=== PATIENT | male | born 1930 | race Caucasian/White ===

== ENCOUNTER → 2019-04-30 | Outpatient (CLI) | payer MEDICARE ==
[~2019-04-30] MED LIST: AMLO5TAB9 PO; DOCU100C33 PO; FINA5TAB2 PO; FLUT16H NASAL; GABA-531 PO; LATA2.5D2 OS; LORA-868 PO; LOSA100T58 PO; NITR0.4T SL; POLY17PO4 PO; PRO AIR INHALER IH; SIMV40TA59 PO; TIMO5DRO7 OS; VIT1CAPS47 PO; XALA2.5OS OS
== END | disposition home or self-care (01) ==
LOC: SHCH 09:18
PROVIDERS: ATTEND Internal Medicine Cardiovascular Disease
DX: I71.4 Abdominal aortic aneurysm, without rupture (principal)
CPT/HCPCS: 93978

== ENCOUNTER 2020-04-14 05:15 | Inpatient (IN) | payer MEDICARE ==
[~2020-04-14] VITALS: Ht 195.6 cm; Wt 80.7 kg
[2020-04-14] MEDS ORDERED: ONDANSETRON HCL 4 MG/2 ML VIAL ONE (05:31)
[2020-04-14] MEDS ORDERED: ORPHENADRINE CITRATE 30 MG/ML ML ONE (05:32)
[2020-04-14 05:48] LABS: BASOPHILS % (AUTO) 0.1 % (0.0-5.0); EOSINOPHILS % (AUTO) 0.1 % (0.0-8.0); HEMATOCRIT 38.8 % (42-54); MEAN CORPUSCULAR HEMOGLOBIN 30.8 pg (27.0-33.0); MEAN CORPUSCULAR VOLUME 93.5 fL (79-99); MONOCYTES % (AUTO) 7.9 % (3.0-13.0); NEUTROPHILS % (AUTO) 82.2 % (40.0-77.0); PLATELET COUNT (AUTO) 208 K/uL (130-400); RED BLOOD CELL COUNT(AUTO) 4.15 MIL/uL (4.50-6.20); RED CELL DISTRIBUTION WIDTH 13.9 % (11.0-15.5); WHITE BLOOD COUNT (AUTO) 11.5 K/uL (4.8-10.8)
[2020-04-14 05:53] LABS: INR 1.14 (0.85-1.15); PARTIAL THROMBOPLASTIN TIME 28.6 SEC (26.3-35.5); PROTHROMBIN TIME 12.2 SEC (9.6-11.6)
[2020-04-14 05:59] LABS: APPEARANCE,URINE Clear (CLEAR); BILIRUBIN,URINE Negative (NEGATIVE); COLOR,URINE Yellow (YELLOW); GLUCOSE, URINE (UA) Negative (NEGATIVE); KETONES,URINE Negative (NEGATIVE); LEUKOCYTE ESTERASE ,URINE Negative (NEGATIVE); NITRATE,URINE Negative (NEGATIVE); OCCULT BLOOD,URINE Negative (NEGATIVE); PROTEIN,URINE Negative (NEGATIVE)
[2020-04-14 06:00] LABS: ALBUMIN 3.1 g/dL (3.5-5.0); BILIRUBIN,TOTAL 0.9 mg/dL (0.2-1.0); CREATININE 1.1 mg/dL (0.5-1.5); POTASSIUM 4.4 mmol/L (3.5-5.1); TOTAL PROTEIN, SERUM 6.9 g/dL (6.0-8.3)
[2020-04-14] MEDS ORDERED: HYDRALAZINE HCL 20 MG/ML VIAL ONE (06:32)
[2020-04-14] MEDS ORDERED: MORPHINE SULFATE 2 MG/ML 1ML SYG ONE (06:32)
[2020-04-14] MEDS ORDERED: ACETAMINOPHEN 325 MG TAB ONE (07:46)
[2020-04-14] MEDS ORDERED: IPRATROPIUM 0.5 MG/2.5 ML INH IH PRN (12:15)
[2020-04-14] MEDS ORDERED: MORPHINE SULFATE 4 MG/1ML SYG IV PRN (12:15)
[2020-04-14] MEDS ORDERED: LIDOCAINE 5% TOPICAL PATCH TP SCH (12:30)
[2020-04-14 14:00] LABS: LACTATE DEHYDROGENASE 408 U/L (81-234)
--- NOTE | 2020-04-14 14:00 | NUR ---
DYSPHAGIA EVAL COMPLETED HIGH RISK OF ASPIRATION WITH THIN LIQUIDS AT THIS TIME. RECOMMEND PUREE SOLIDS, NECTAR THICK LIQUIDS VIA STRAW, PILLS CRUSHED WITH APPLESAUCE TOLERATED. MERCERIZING RANGE FEEDER EDUCATED Pt ON RISKS AND CONSEQUENCES OF ASPIRATION. MERCERIZING RANGE FEEDER COORDINATED WITH NURSE NORWOOD. RECOMMENDATIONS: DYSPHAGIA THERAPY 3-5XWEEK TO INCREASE ORAL MOTOR STRENGTH AND PHARYNGEAL SWALLOW: LTG#1: Pt WILL TOLERATE LEAST RESTRICTIVE DIET TO MEET NUTRITION/HYDRATION WITH NO S/S OF ASPIRATION. LTG#2: SKILLED EDUCATION Pt/FAMILY/STAFF STG#1: Pt WILL PARTICIPATE IN LARYNGEAL ELEVATION/EXCURSION EXERCISES WITH 80% ACCURACY. STG#2: Pt WILL PARTICIPATE IN TONGUE BASE RETRACTION EXERCISES WITH 80% ACCURACY. STG#3: Pt WILL PARTICIPATE IN ORAL MOTOR EXERCISES WITH 80% ACCURACY. STG#4: Pt WILL TOLERATE THERAPEUTIC TRIALS OF THIN LIQUIDS WITH NO OVERT S/S OF ASPIRATION. STG#5: Pt WILL BE ABLE TO PARTICIPATE IN MBSS AFTER 2-4 WEEKS OF THERAPEUTIC INTERVENTION. STG#6: SKILLED EDUCATION Pt/FAMILY/STAFF. MERCERIZING RANGE FEEDER COORDINATED CARE WITH [facility]. Addendum: 04/14/[address] SHAYY CLEMENTS Amended: Links added.
[2020-04-14] MEDS ORDERED: LIDOCAINE 5% TOPICAL PATCH TP ONE (14:52)
[2020-04-14] MEDS ORDERED: ENOXAPARIN SODIUM 30 MG/0.3 ML SQ ONE (14:52)
[2020-04-14] MEDS ORDERED: ACETAMINOPHEN-CODEINE 300/30MG TAB ONE (14:53)
--- NOTE | 2020-04-14 16:00 | NUR ---
DCP CM met with pt discussed dc plans. Pt is independent mostly prior to admission, lives at [facility]. Pt has a rollator walker. Denies any equipments/services. Prefers to go back to [facility] but agreeable to go to [facility] BRE signed. Son able to assist with transportation and needs as necessary. DC plan to SNF once stable. CM to cont to follow up. Addendum: 04/16/20 at 0944 by ADAL PANIAGUA LVN CM Amended: Links added.
[2020-04-14] MEDS: FAMOTIDINE 20MG TAB 20 MG TAB PO SCH (20:59)
[2020-04-14] MEDS: METOPROLOL TARTRATE 25 MG TAB PO SCH (20:59)
[2020-04-14 22:06] VITALS: BP 133/86
[2020-04-14] MEDS: ACETAMINOPHEN-CODEINE 300/30MG TAB PO PRN (23:05)
[2020-04-15] VITALS (8 sets, daily range): BP systolic 130–188; BP diastolic 69–107
[2020-04-15 04:04] LABS: BASOPHILS % (AUTO) 0.3 % (0.0-5.0); EOSINOPHILS % (AUTO) 1.2 % (0.0-8.0); HEMATOCRIT 35.6 % (42-54); LYMPHOCYTES % (AUTO) 16.9 % (21.0-51.0); MEAN CORPUSCULAR HEMOGLOBIN 30.7 pg (27.0-33.0); MEAN CORPUSCULAR HGB CONC 32.6 g/dL (32.0-36.0); MEAN CORPUSCULAR VOLUME 94.2 fL (79-99); MONOCYTES % (AUTO) 9.2 % (3.0-13.0); NEUTROPHILS % (AUTO) 71.9 % (40.0-77.0); PLATELET COUNT (AUTO) 202 K/uL (130-400); RED BLOOD CELL COUNT(AUTO) 3.78 MIL/uL (4.50-6.20); RED CELL DISTRIBUTION WIDTH 14.4 % (11.0-15.5); WHITE BLOOD COUNT (AUTO) 7.8 K/uL (4.8-10.8)
[2020-04-15 04:32] LABS: ALBUMIN 2.8 g/dL (3.5-5.0); BILIRUBIN,DIRECT 0.3 mg/dL (0.0-0.3); BILIRUBIN,TOTAL 0.7 mg/dL (0.2-1.0); CREATININE 1.1 mg/dL (0.5-1.5); TOTAL PROTEIN, SERUM 6.1 g/dL (6.0-8.3)
[2020-04-15] MEDS: FAMOTIDINE 20MG TAB 20 MG TAB PO SCH ×2 (08:32→22:18)
[2020-04-15] MEDS: METOPROLOL TARTRATE 25 MG TAB PO SCH ×2 (08:33→22:18)
[2020-04-15] MEDS: ASPIRIN 81MG TAB.CHEW PO SCH (08:33)
[2020-04-15] MEDS: ENOXAPARIN SODIUM 40 MG/0.4 ML SYRINGE SQ SCH (08:34)
[2020-04-15] MEDS ORDERED: CALCITONIN 3.7 ML AEROSOL NS SCH (09:00)
[2020-04-15] MEDS ORDERED: ENOXAPARIN SODIUM 30 MG/0.3 ML SQ SCH (09:00)
--- NOTE | 2020-04-15 10:00 | NUR ---
FOLLOW UP COMPLETED. TUFTING SUPERVISOR COORDINATED WITH NURSE LOPEZ. Pt TOLERATING DIET RECOMMENDATIONS WITH NO S/S OF ASPIRATION AT THIS TIME. CONTINUE WITH PLAN OF CARE TOLERATED. TUFTING SUPERVISOR WILL FOLLOW Pt TO ADDRESS SWALLOWING GOALS. Addendum: 04/15/[address] SHAYY CLEMENTS Amended: Links added.
--- NOTE | 2020-04-15 11:20 | NUR ---
DYSPHAGIA RE-EVAL COMPLETED. S/S OF ASPIRATION AT THIS TIME. RECOMMEND MECHANICAL SOFT/CHOPPED, THIN LIQUIDS, AND PILLS WHOLE WITH LIQUIDS TOLERATED. REGULATORY AFFAIRS ASSOCIATE EDUCATED Pt ON RISKS AND CONSEQUENCES OF ASPIRATION. SON AT BEDSIDE DURING EVALUATION. ALL QUESTIONS ANSWERED AT THIS TIME. REGULATORY AFFAIRS ASSOCIATE COORDINATED WITH NURSE JOHN. Addendum: 04/15/[address] SHAYY CLEMENTS Amended: Links added.
--- NOTE | 2020-04-15 14:48 | NUR ---
TRISTEN LUNDBERG SPOKE TO MR CAMARENA AND HIS SON. AFTER MULTIPLE CONVERSATIONS HE AGREED TO GO [facility]. GOING TO SEND SON SOME INFO REGARDING OTHER INDEPENDENT LIVING AREAS SINCE [facility] [place] WILL ONLY LET HIM BACK IF HE HAS 24 HRS CARE. I SPOKE TO HIM SAID HE CAN NOT AFFORD. INFO SENT TO [facility] LET VENDOR. Addendum: 04/15/20 at 1510 by EVARISTO CROUCH RN CM Amended: Links added.
[2020-04-15] MEDS ORDERED: NON-FORMULARY MEDICATION 1 EACH (Simvastatin (Zocor) 20 MG) PO SCH (21:00)
[2020-04-15] MEDS: GABAPENTIN 300 MG CAPSULE PO SCH (22:18)
[2020-04-15] MEDS: SIMVASTATIN 20 MG TABLET PO SCH (22:18)
[2020-04-16] VITALS (8 sets, daily range): BP systolic 109–174; BP diastolic 48–97
[2020-04-16] MEDS ORDERED: HYDRALAZINE HCL 20 MG/ML VIAL IV PRN (03:45)
[2020-04-16] MEDS ORDERED: HYDRALAZINE HCL 20 MG/ML VIAL ONE (03:47)
[2020-04-16] MEDS: ACETAMINOPHEN-CODEINE 300/30MG TAB PO PRN ×2 (04:44→16:59)
--- NOTE | 2020-04-16 08:30 | NUR ---
FOLLOW UP COMPLETED. NUTRITION TECHNICIAN COORDINATED WITH NURSE LOPEZ. Pt TOLERATING DIET RECOMMENDATIONS WITH NO S/S OF ASPIRATION AT THIS TIME. CONTINUE WITH PLAN OF CARE TOLERATED. Addendum: 04/16/[address] SHAYY CLEMENTS Amended: Links added.
[2020-04-16] MEDS: ASPIRIN 81MG TAB.CHEW PO SCH (09:15)
[2020-04-16] MEDS: LOSARTAN 100 MG TABLET PO SCH (09:15)
[2020-04-16] MEDS: FAMOTIDINE 20MG TAB 20 MG TAB PO SCH ×3 (09:15→21:32)
[2020-04-16] MEDS: GABAPENTIN 300 MG CAPSULE PO SCH ×4 (09:15→21:32)
[2020-04-16] MEDS: METOPROLOL TARTRATE 25 MG TAB PO SCH ×3 (09:16→21:32)
[2020-04-16] MEDS: ENOXAPARIN SODIUM 40 MG/0.4 ML SYRINGE SQ SCH (09:16)
[2020-04-16] MEDS: AMLODIPINE BESYLATE 5 MG TAB PO SCH ×2 (09:16→16:13)
[2020-04-16] MEDS: FINASTERIDE 5 MG TABLET PO SCH (11:55)
[2020-04-16] MEDS: SIMVASTATIN 20 MG TABLET PO SCH ×2 (21:00→21:32)
[2020-04-16] MEDS ORDERED: LATANOPROST 2.5 ML DROPS OS SCH (21:00)
[2020-04-16] MEDS: LATANOPROST 2.5 ML DROPS OS SCH (21:33)
[2020-04-16] MEDS: TIMOLOL MALEATE 0.5% 5 ML BOTTLE OS SCH (21:33)
[2020-04-17 03:39] VITALS: BP 143/90
[2020-04-17 03:48] LABS: BASOPHILS % (AUTO) 0.3 % (0.0-5.0); EOSINOPHILS % (AUTO) 4.1 % (0.0-8.0); LYMPHOCYTES % (AUTO) 6.9 % (21.0-51.0); MEAN CORPUSCULAR HEMOGLOBIN 30.1 pg (27.0-33.0); MEAN CORPUSCULAR HGB CONC 32.3 g/dL (32.0-36.0); MEAN CORPUSCULAR VOLUME 93.3 fL (79-99); MONOCYTES % (AUTO) 6.5 % (3.0-13.0); NEUTROPHILS % (AUTO) 81.9 % (40.0-77.0); PLATELET COUNT (AUTO) 206 K/uL (130-400); RED BLOOD CELL COUNT(AUTO) 3.75 MIL/uL (4.50-6.20); RED CELL DISTRIBUTION WIDTH 14.9 % (11.0-15.5); WHITE BLOOD COUNT (AUTO) 11.6 K/uL (4.8-10.8)
[2020-04-17 04:00] LABS: CREATININE 1.2 mg/dL (0.5-1.5)
[2020-04-17 08:00] VITALS: BP 119/70
[2020-04-17] MEDS: TIMOLOL MALEATE 0.5% 5 ML BOTTLE OS SCH ×2 (09:00→21:00)
[2020-04-17] MEDS: LOSARTAN 100 MG TABLET PO SCH (09:00)
[2020-04-17] MEDS: AMLODIPINE BESYLATE 5 MG TAB PO SCH ×2 (09:40→16:53)
[2020-04-17] MEDS: ASPIRIN 81MG TAB.CHEW PO SCH (09:41)
[2020-04-17] MEDS: METOPROLOL TARTRATE 25 MG TAB PO SCH ×2 (09:44→21:00)
[2020-04-17] MEDS: FAMOTIDINE 20MG TAB 20 MG TAB PO SCH ×2 (09:45→21:00)
[2020-04-17] MEDS: GABAPENTIN 300 MG CAPSULE PO SCH ×3 (09:45→21:00)
[2020-04-17] MEDS: ENOXAPARIN SODIUM 40 MG/0.4 ML SYRINGE SQ SCH (09:50)
[2020-04-17 12:00] VITALS: BP 94/59
--- NOTE | 2020-04-17 12:00 | NUR ---
BP TIMOTHY NINA HELD SECONDARY TO SYSTOLIC BP < 100MD TO BE MADE AWARE
--- NOTE | 2020-04-17 13:15 | NUR ---
DR GREEN CONSULT CALL PLACED TO DR GREEN OFFICE REGARDING CONSULT; SPOKE TO [place] AND MADE AWARE DR GREEN HAD NOT COME IN TO SEE PT AND CONSULT WAS CALLED IN YESTERDAY. INFORMATION GIVEN REGARDING PATIENT.
[2020-04-17] MEDS: LIDOCAINE 5% TOPICAL PATCH TP SCH (13:17)
[2020-04-17] MEDS: FINASTERIDE 5 MG TABLET PO SCH (13:23)
--- NOTE | 2020-04-17 15:47 | NUR ---
DR GREEN CONSULT CALL RECEIVED FROM DR GREEN, REGARDING CONSULT, STATES WILL SEE PT ON MONDAY OR AN OUTPATIENT.
[2020-04-17 16:00] VITALS: BP 128/96
--- NOTE | 2020-04-17 20:00 | NUR ---
PATIENT RESTING IN BED. PATIENT REFUSING ALL MEDICATIONS. PATIENT CONTINUOUSLY YELLING FOR HELP. A/OX3. HE STATES NAME, , MONTH, AND LOCATION. HE IS YELLING BECAUSE HE WANTS HIS PERSONAL PHONE CONNECTED TO THE CINDER SNAPPER ONCE HE IS DONE USING IT. HE ALSO YELLING BECAUSE HE WANTS TO BE DISCHARGED IMMEDIATELY. AWAITING APPROVAL FOR REHAB POST FALLS. PATIENT REFUSING ALL MEDICATION, VITALS, AND TELE MONITOR. PATIENT STATED HE WANTS TO . HE STATED HE WILL STOP EATING AND DRINKING FLUIDS. PATIENT DID EAT A SANDWICH AND DRINK WATER. PATIENT HAS BEEN EXPLAINED THE DISCHARGE PROCESS. WILL CONTINUE TO MONITOR.
[2020-04-17] MEDS: SIMVASTATIN 20 MG TABLET PO SCH (21:00)
[2020-04-17] MEDS: LATANOPROST 2.5 ML DROPS OS SCH (21:00)
[2020-04-17 23:26] VITALS: BP 141/94
--- NOTE | 2020-04-18 02:45 | NUR ---
PATIENT CONTINUES TO YELL. HAS BEEN USING CALL LIGHT AND YELLING ALL NIGHT. LANDSCAPE SUPERVISOR AND NURSE ENTERING ROOM EVERY 5 MIN TO MAKE PHONE CALLS FOR PATIENT. PATIENT ATTEMPTING TO CALL PRIMARY CARE DR AND SON. PRIMARY CARE DR FROM [facility] CALLED THE FLOOR IN REGARDS TO PATIENT. DR SAID SHE WILL CALL PATIENT TO CALM HIM DOWN AND REASSURE HE WILL NOT BE FORCED INTO BACK SURGERY FOR FXS.
[2020-04-18 03:20] VITALS: BP 129/87
[2020-04-18 06:08] LABS: BASOPHILS % (AUTO) 0.4 % (0.0-5.0); EOSINOPHILS % (AUTO) 7.2 % (0.0-8.0); HEMATOCRIT 34.6 % (42-54); LYMPHOCYTES % (AUTO) 8.3 % (21.0-51.0); MEAN CORPUSCULAR HEMOGLOBIN 30.3 pg (27.0-33.0); MEAN CORPUSCULAR HGB CONC 32.7 g/dL (32.0-36.0); MEAN CORPUSCULAR VOLUME 92.8 fL (79-99); MONOCYTES % (AUTO) 6.9 % (3.0-13.0); NEUTROPHILS % (AUTO) 76.9 % (40.0-77.0); PLATELET COUNT (AUTO) 212 K/uL (130-400); RED BLOOD CELL COUNT(AUTO) 3.73 MIL/uL (4.50-6.20); RED CELL DISTRIBUTION WIDTH 14.6 % (11.0-15.5); WHITE BLOOD COUNT (AUTO) 10.5 K/uL (4.8-10.8)
[2020-04-18 06:41] LABS: ALBUMIN 2.9 g/dL (3.5-5.0); BILIRUBIN,TOTAL 1.5 mg/dL (0.2-1.0); POTASSIUM 3.8 mmol/L (3.5-5.1); TOTAL PROTEIN, SERUM 6.2 g/dL (6.0-8.3)
[2020-04-18] MEDS: ACETAMINOPHEN-CODEINE 300/30MG TAB PO PRN (06:45)
[2020-04-18 08:27] VITALS: BP 142/83
[2020-04-18] MEDS: AMLODIPINE BESYLATE 5 MG TAB PO SCH ×2 (09:00→17:27)
[2020-04-18] MEDS: FAMOTIDINE 20MG TAB 20 MG TAB PO SCH ×2 (10:04→21:48)
[2020-04-18] MEDS: GABAPENTIN 300 MG CAPSULE PO SCH ×3 (10:04→21:48)
[2020-04-18] MEDS: LOSARTAN 100 MG TABLET PO SCH (10:05)
[2020-04-18] MEDS: ASPIRIN 81MG TAB.CHEW PO SCH (10:05)
[2020-04-18] MEDS: TIMOLOL MALEATE 0.5% 5 ML BOTTLE OS SCH ×2 (10:05→21:49)
[2020-04-18] MEDS: METOPROLOL TARTRATE 25 MG TAB PO SCH ×2 (10:05→21:48)
[2020-04-18] MEDS: ENOXAPARIN SODIUM 40 MG/0.4 ML SYRINGE SQ SCH (10:06)
[2020-04-18 11:24] VITALS: BP 112/53
[2020-04-18] MEDS: FINASTERIDE 5 MG TABLET PO SCH (14:16)
[2020-04-18] MEDS: LIDOCAINE 5% TOPICAL PATCH TP SCH (14:19)
[2020-04-18 16:00] VITALS: BP 127/79
[2020-04-18 19:10] VITALS: BP 144/92
--- NOTE | 2020-04-18 19:50 | NUR ---
PM Assessment Received pt noted with some agitation wanting to go home, be out of bed. Routine assessment done, assurance given & reminded that possibly be going to a rehab place tomorrow. Pt made aware that he can't be getting out of bed by himself due to weakness & being very unsteady on his feet. Pt currently denies pain & agreed to stay in bed. Pt is DNR/DNI, noted no IV access.
[2020-04-18] MEDS: SIMVASTATIN 20 MG TABLET PO SCH (21:48)
[2020-04-18] MEDS: LATANOPROST 2.5 ML DROPS OS SCH (21:49)
[2020-04-18 23:40] VITALS: BP 128/68
[2020-04-19 03:05] VITALS: BP 142/60
[2020-04-19 04:03] LABS: BASOPHILS % (AUTO) 0.3 % (0.0-5.0); EOSINOPHILS % (AUTO) 7.9 % (0.0-8.0); HEMATOCRIT 33.8 % (42-54); LYMPHOCYTES % (AUTO) 9.2 % (21.0-51.0); MEAN CORPUSCULAR HEMOGLOBIN 30.9 pg (27.0-33.0); MEAN CORPUSCULAR HGB CONC 32.8 g/dL (32.0-36.0); MEAN CORPUSCULAR VOLUME 94.2 fL (79-99); MONOCYTES % (AUTO) 8.7 % (3.0-13.0); NEUTROPHILS % (AUTO) 73.6 % (40.0-77.0); PLATELET COUNT (AUTO) 204 K/uL (130-400); RED BLOOD CELL COUNT(AUTO) 3.59 MIL/uL (4.50-6.20); RED CELL DISTRIBUTION WIDTH 14.6 % (11.0-15.5); WHITE BLOOD COUNT (AUTO) 9.9 K/uL (4.8-10.8)
[2020-04-19 04:17] LABS: ALBUMIN 2.6 g/dL (3.5-5.0); BILIRUBIN,TOTAL 1.3 mg/dL (0.2-1.0); POTASSIUM 3.7 mmol/L (3.5-5.1)
[2020-04-19 07:00] VITALS: BP 153/93
[2020-04-19] MEDS: FAMOTIDINE 20MG TAB 20 MG TAB PO SCH ×2 (08:52→21:00)
[2020-04-19] MEDS: GABAPENTIN 300 MG CAPSULE PO SCH ×3 (08:52→21:00)
[2020-04-19] MEDS: ASPIRIN 81MG TAB.CHEW PO SCH (08:52)
[2020-04-19] MEDS: METOPROLOL TARTRATE 25 MG TAB PO SCH ×2 (08:52→21:00)
[2020-04-19] MEDS: LOSARTAN 100 MG TABLET PO SCH (08:52)
[2020-04-19] MEDS: AMLODIPINE BESYLATE 5 MG TAB PO SCH ×2 (08:52→16:44)
[2020-04-19] MEDS: LIDOCAINE 5% TOPICAL PATCH TP SCH (08:53)
[2020-04-19] MEDS: ENOXAPARIN SODIUM 40 MG/0.4 ML SYRINGE SQ SCH (08:53)
[2020-04-19] MEDS: TIMOLOL MALEATE 0.5% 5 ML BOTTLE OS SCH ×2 (08:54→21:27)
[2020-04-19 11:15] VITALS: BP 112/74
[2020-04-19] MEDS: FINASTERIDE 5 MG TABLET PO SCH (12:57)
[2020-04-19 15:30] VITALS: BP 127/95
--- NOTE | 2020-04-19 17:13 | NUR ---
Patient noted to be coughing and SOB post dinner. Patient had tolerated breakfast and lunch without s/s of aspiration. Hospitalist service notified. Will re-consult .
--- NOTE | 2020-04-19 17:41 | NUR ---
PATIENT IS CALLING FAMILY AND IS TELLING THEM HE IS READY TO BECAUSE HIS SON WILL NOT LET HIM GO HOME. DR BLANCO WITNESSED THIS BEHAVIOR AND ORDERED ATIVAN 0.25MG IM X1 (GIVEN). AWARE THAT PATIENT IS DNR/DNI AND DOES NOT HAVE A PIV. NO OTHER ORDERS AT THIS TIME. PATIENT GIVEN EMOTIONAL SUPPORT AND REASSURANCE.
[2020-04-19] MEDS ORDERED: LORAZEPAM 2 MG/ML 1 ML VIAL IM SCH (18:00)
[2020-04-19 20:34] VITALS: BP 166/82
[2020-04-19] MEDS: SIMVASTATIN 20 MG TABLET PO SCH (21:00)
[2020-04-19] MEDS: LATANOPROST 2.5 ML DROPS OS SCH (21:27)
[2020-04-20] MEDS ORDERED: LORAZEPAM 2 MG/ML 1 ML VIAL IM ONE (00:05)
[2020-04-20 04:15] VITALS: BP 134/51
[2020-04-20 08:00] VITALS: BP 137/68
[2020-04-20] MEDS: AMLODIPINE BESYLATE 5 MG TAB PO SCH ×3 (08:00→16:57)
--- NOTE | 2020-04-20 08:30 | NUR ---
DR. FRENCH IN ROOM SPEAKING WITH PT.
--- NOTE | 2020-04-20 08:37 | NUR ---
DR. FRENCH SPEAKING WITH PT.'S SPOUSE, YVON SNOW, VIA TELEPHONE AND UPDATING ON PT. STATUS AND ANSWERING QUESTIONS.
[2020-04-20 08:44] LABS: BASOPHILS % (AUTO) 0.2 % (0.0-5.0); EOSINOPHILS % (AUTO) 2.5 % (0.0-8.0); HEMATOCRIT 33.4 % (42-54); LYMPHOCYTES % (AUTO) 8.6 % (21.0-51.0); MEAN CORPUSCULAR HEMOGLOBIN 30.4 pg (27.0-33.0); MEAN CORPUSCULAR HGB CONC 32.3 g/dL (32.0-36.0); MEAN CORPUSCULAR VOLUME 94.1 fL (79-99); MONOCYTES % (AUTO) 10.6 % (3.0-13.0); NEUTROPHILS % (AUTO) 77.6 % (40.0-77.0); PLATELET COUNT (AUTO) 168 K/uL (130-400); RED BLOOD CELL COUNT(AUTO) 3.55 MIL/uL (4.50-6.20); RED CELL DISTRIBUTION WIDTH 14.8 % (11.0-15.5); WHITE BLOOD COUNT (AUTO) 8.5 K/uL (4.8-10.8)
[2020-04-20] MEDS: LOSARTAN 100 MG TABLET PO SCH ×2 (09:00→11:33)
[2020-04-20] MEDS: METOPROLOL TARTRATE 25 MG TAB PO SCH ×3 (09:00→20:29)
[2020-04-20] MEDS: GABAPENTIN 300 MG CAPSULE PO SCH ×4 (09:00→20:29)
[2020-04-20] MEDS: FAMOTIDINE 20MG TAB 20 MG TAB PO SCH ×2 (09:00→20:29)
[2020-04-20] MEDS: ASPIRIN 81MG TAB.CHEW PO SCH (09:00)
[2020-04-20 09:10] LABS: ALBUMIN 2.6 g/dL (3.5-5.0); BILIRUBIN,TOTAL 1.3 mg/dL (0.2-1.0); CREATININE 0.8 mg/dL (0.5-1.5); POTASSIUM 3.6 mmol/L (3.5-5.1)
--- NOTE | 2020-04-20 09:30 | NUR ---
DENTURES REMOVED PER PT. REQUEST. DENTURES CLEANED BY THIS NURSE WITH USE OF HYDROGEN PEROXIDE AND RINSED EXTENSIVELY WITH WATER.
[2020-04-20] MEDS: CALCITONIN 3.7 ML AEROSOL NS SCH (09:54)
[2020-04-20] MEDS: LIDOCAINE 5% TOPICAL PATCH TP SCH (09:54)
[2020-04-20] MEDS: ENOXAPARIN SODIUM 40 MG/0.4 ML SYRINGE SQ SCH (09:55)
[2020-04-20] MEDS: TIMOLOL MALEATE 0.5% 5 ML BOTTLE OS SCH ×2 (09:56→20:30)
--- NOTE | 2020-04-20 11:00 | NUR ---
DYSPHAGIA RE-EVAL COMPLETED. +S/S OF ASPIRATION WITH THIN LIQUIDS AND SOLIDS. RECOMMEND PUREED, NECTAR-THICK LIQUIDS; PILLS CRUSHED. Pt CONFUSED. LABOR CONCILIATOR COORDINATED CARE WITH NURSE AUTUMN. HE VERBALIZED UNDERSTANDING AND COMPLIANCE WITH RECOMMENDATIONS. RE-EVAL IS RECOMMENDED IF THERE IS A CHANGE IN STATUS. Addendum: 04/20/20 at 1314 by CHERYL RAMOS, [facility] Amended: Links added.
[2020-04-20] MEDS: FINASTERIDE 5 MG TABLET PO SCH ×2 (11:04→11:34)
[2020-04-20] MEDS: ACETAMINOPHEN-CODEINE 300/30MG TAB PO PRN (11:34)
[2020-04-20 12:00] VITALS: BP 142/69
[2020-04-20] MEDS ORDERED: MORPHINE SULFATE 2 MG/ML 1ML SYG ONE (13:41)
[2020-04-20] MEDS ORDERED: CIPROFLOXACIN HCL 0.2%/HYDROCORT 1% 10 ML OTIC SUSP OTIC SCH ×2 (13:45→21:00)
[2020-04-20] MEDS: CIPROFLOXACIN HCL 0.2%/HYDROCORT 1% 10 ML OTIC SUSP AS SCH ×2 (15:03→20:30)
[2020-04-20 16:00] VITALS: BP 120/83
[2020-04-20] MEDS: MORPHINE SULFATE 2 MG/ML 1ML SYG IV PRN (18:47)
[2020-04-20 20:00] VITALS: BP 123/61
[2020-04-20] MEDS: SIMVASTATIN 20 MG TABLET PO SCH (20:29)
[2020-04-20] MEDS: LATANOPROST 2.5 ML DROPS OS SCH (20:30)
[2020-04-20] MEDS ORDERED: DIPHENHYDRAMINE HCL 25 MG CAPSULE PO PRN (21:00)
[2020-04-20 23:18] VITALS: BP 110/73
[2020-04-21] MEDS: MORPHINE SULFATE 2 MG/ML 1ML SYG IV PRN (00:59)
[2020-04-21 04:00] VITALS: BP 123/70
[2020-04-21 08:00] VITALS: BP 113/69
[2020-04-21] MEDS: FAMOTIDINE 20MG TAB 20 MG TAB PO SCH (08:56)
[2020-04-21] MEDS: LOSARTAN 100 MG TABLET PO SCH (08:56)
[2020-04-21] MEDS: GABAPENTIN 300 MG CAPSULE PO SCH ×2 (08:56→14:02)
[2020-04-21] MEDS: TIMOLOL MALEATE 0.5% 5 ML BOTTLE OS SCH (08:57)
[2020-04-21] MEDS: AMLODIPINE BESYLATE 5 MG TAB PO SCH ×2 (08:57→16:22)
[2020-04-21] MEDS: ASPIRIN 81MG TAB.CHEW PO SCH (08:57)
[2020-04-21] MEDS: CIPROFLOXACIN HCL 0.2%/HYDROCORT 1% 10 ML OTIC SUSP AS SCH (08:57)
[2020-04-21] MEDS: METOPROLOL TARTRATE 25 MG TAB PO SCH (08:57)
[2020-04-21] MEDS: LIDOCAINE 5% TOPICAL PATCH TP SCH (08:58)
[2020-04-21] MEDS: CALCITONIN 3.7 ML AEROSOL NS SCH (08:58)
[2020-04-21] MEDS: ENOXAPARIN SODIUM 40 MG/0.4 ML SYRINGE SQ SCH (08:59)
--- NOTE | 2020-04-21 10:00 | NUR ---
DYSPHAGIA RE-EVAL COMPLETED. +S/S OF ASPIRATION THIN LIQUIDS AND MIXED TEXTURE. RECOMMEND MECHANICAL SOFT/CHOPPED, NECTAR-THICK LIQUIDS; PILLS WHOLE, NO MIXED TEXTURE. Pt WITH IMPROVED COOPERATION, AND MENTAL STATUS. RECOMMEND DIET UPGRADE AT THIS TIME. PEDIATRIC AUDIOLOGIST COORDINATED WITH NURSE LEYVA. ALL QUESTIONS ANSWERED AT THIS TIME. Addendum: 04/21/20 at 1056 by CHERYL RAMOS, [facility] Amended: Links added.
[2020-04-21] MEDS ORDERED: LACTULOSE 20 GM/30 ML UDCUP PO SCH (10:15)
[2020-04-21] MEDS: FINASTERIDE 5 MG TABLET PO SCH (11:39)
--- NOTE | 2020-04-21 11:49 | NUR ---
CM NOTE/NEGATIVE COVID PATIENT RECEIVED NEGATIVE COVID RESULT, FAXED TO [facility].PATIENT ACCEPTED TO [facility], WILL DC VIA EMS. PRIMARY NURSE, AUTUMN FLORES, MADE AWARE OF ACCEPTANCE AND EMS SET UP. MED REC IN CHART. DC ORDER IN [facility].
[2020-04-21 12:00] VITALS: BP 94/57
[2020-04-21 16:00] VITALS: BP 114/70
--- NOTE | 2020-04-21 17:05 | NUR ---
REPORT TO MIRYAM MARS RN AT [facility].
--- NOTE | 2020-04-21 17:22 | NUR ---
EMS TRANSPORT REQUESTED.
--- NOTE | 2020-04-21 18:00 | NUR ---
HL REMOVED, CATHETER INTACT.
[2020-04-21] MEDS: ACETAMINOPHEN-CODEINE 300/30MG TAB PO PRN (18:03)
[2020-04-21 19:40] VITALS: BP 118/63
== END 2020-04-21 21:08 | DRG 552 ==
LOC: EDH 05:15 → EDHIP 11:40 → 4AH 22:08
PROVIDERS: ADMIT Internal Medicine; ATTEND Internal Medicine
DX: S22.089A Unspecified fracture of T11-T12 vertebra, initial encounter for closed fracture (principal); W18.39XA Other fall on same level, initial encounter; Y93.89 Activity, other specified; Y92.89 Other specified places as the place of occurrence of the external cause; Y99.8 Other external cause status; M19.91 Primary osteoarthritis, unspecified site; J44.9 Chronic obstructive pulmonary disease, unspecified; M81.0 Age-related osteoporosis without current pathological fracture; N18.2 Chronic kidney disease, stage 2 (mild); D72.829 Elevated white blood cell count, unspecified; E78.5 Hyperlipidemia, unspecified; F03.90 Unspecified dementia, unspecified severity, without behavioral disturbance, psychotic disturbance, mood disturbance, and anxiety; I49.5 Sick sinus syndrome; I71.4 Abdominal aortic aneurysm, without rupture; M19.90 Unspecified osteoarthritis, unspecified site; Z20.828 Contact with and (suspected) exposure to other viral communicable diseases; G89.29 Other chronic pain; Z66 Do not resuscitate; Z79.82 Long term (current) use of aspirin; Z79.899 Other long term (current) drug therapy; Z80.42 Family history of malignant neoplasm of prostate; Z82.0 Family history of epilepsy and other diseases of the nervous system; Z82.3 Family history of stroke; Z82.49 Family history of ischemic heart disease and other diseases of the circulatory system; Z82.5 Family history of asthma and other chronic lower respiratory diseases; Z83.3 Family history of diabetes mellitus; Z87.891 Personal history of nicotine dependence; Z95.0 Presence of cardiac pacemaker; Z95.5 Presence of coronary angioplasty implant and graft
CPT/HCPCS: 36415; 70450; 71045; 72125; 72128; 72131; 80048; 80053; 80076; 81003; 82728; 83615; 83690; 83880; 84145; 84484; 85025; 85378; 85610; 85730; 87486; 87581; 87633; 87635; 87798; 92610; 93005; 94640; 94664; 97039; G0378; J0360; J1650; J2060; J2270; J2405